=== PATIENT | female | born 1980 | race Caucasian/White ===

== ENCOUNTER 2018-02-13 12:37 | Emergency (ER) | payer BC ==
[2018-02-13 13:35] VITALS: BP 150/87
--- NOTE | 2018-02-13 14:09 | UC ---
Hand/Wrist HPI - HPI Summary HPI Summary: 38 y/o female presents to the urgent care c/o left hand pain s/p her dog hit her hand against the wall on 02/07/2018. Pt report pain has worsen w/ the day and is sharp w/ movement 4/10 radiating to the left elbow and pinky finger. Pt denies numbness or tingling sensation. 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 Pt has not taking anything to alleviate symptoms. Pt denies SOB, chest pain. abdominal pain , N/V/D. - History Of Current Complaint Chief Complaint: UCUpperExtremity Stated Complaint: ARM INJURY Time Seen by Provider: 02/13/18 13:49 Hx Obtained From: Patient Hx Last Menstrual Period: one week ago Onset/Duration: Sudden Onset, Lasting Weeks - 1 week, Still Present, Worse Since - 2 days Severity Initially: Mild Severity Currently: Moderate Pain Intensity: 4 Pain Scale Used: 0-10 Numeric Character Of Pain: Sharp Aggravating Factor(s): Movement, Lifting, Flexion, Pulling Alleviating Factor(s): Rest, Ice Associated Signs And Symptoms: Positive: Swelling. Negative: Fever, Weakness, Numbness/Tingling Related History: Dominant Hand Right - Allergies/Home Medications Allergies/Adverse Reactions: Allergies Allergy/AdvReac Type Severity Reaction Status Date / Time pine nuts AdvReac Intermediate Headache Uncoded 02/13/18 13:35 PMH/Surg Hx/FS Hx/Imm Hx Previously Healthy: Yes Other Endocrine History: Gestation Diabetes - Surgical History Surgical History: Yes Surgery Procedure, Year, and Place: WISDOM TEETH - Family History Known Family History: Positive: Unknown - Pt is adopted - Social History Occupation: Employed Full-time Lives: With Family Alcohol Use: Occasionally Substance Use Type: None Smoking Status (MU): Never Smoked Tobacco Review of Systems Constitutional: Negative Skin: Other - left hand swelling Eyes: Negative ENT: Negative Respiratory: Negative Cardiovascular: Negative Gastrointestinal: Negative Genitourinary: Negative Motor: Negative Neurovascular: Negative Musculoskeletal: Decreased ROM - left hand, Other: - left hand pain radiating to the elbow Neurological: Negative Psychological: Negative Is Patient Immunocompromised?: No All Other Systems Reviewed And Are Negative: Yes Physical Exam - Summary Physical Exam Summary: Vital Signs Reviewed: Yes General: Well-Appearing, No Pain Distress, Well-Nourished - female w/o any apparent distress Eyes: Positive: Conjunctiva Clear - PERRLA, EOMI ENT: Positive: Normal ENT inspection, Hearing grossly normal, Pharynx normal, TMs normal, Uvula midline Neck: Positive: Supple, Nontender, No Lymphadenopathy Respiratory: Positive: Chest non-tender, Lungs clear, Normal breath sounds, No respiratory distress Cardiovascular: Positive: RRR, No Murmur, Pulses Normal, Brisk Capillary Refill Abdomen Description: Positive: Nontender, No Organomegaly, Soft. Negative: CVA Tenderness (R), CVA Tenderness (L) Bowel Sounds: Positive: Present Musculoskeletal: Positive: Strength Intact, Other: Neurological Exam: Normal Musculoskeletal: Positive: Wrist: the L hand is without obvious asymmetry or deformity when compared to the R hand. No surface trauma, open wounds, swelling , or obvious deformity. No overlying erythema or warmth. No bony crepitus. Point tenderness over the thenar eminence and dorsal side of hand. No scaphoid fullness or tenderness to direct palpation or axial load. FROm of all finger and hand. Motor/sensory function of ulnar, radial, median nerves intact. Ulnar and radial pulses intact. Psychological Exam: Normal Skin Exam: Normal Triage Information Reviewed: Yes Vital Signs: Initial Vital Signs Temp 98.4 F 02/13/18 13:32 Pulse 82 02/13/18 13:32 Resp 12 02/13/18 13:32 BP 150/87 02/13/18 13:32 Pulse Ox 100 02/13/18 13:32 Hand/Wrist Course/Dx - Course Course Of Treatment: 38 y/o female presents to the urgent care c/o left hand pain s/p her dog hit her hand against the wall on 02/07/2018. Pt report pain has worsen w/ the day and is sharp w/ movement 4/10 radiating to the left elbow and pinky finger. Pt denies numbness or tingling sensation. 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 Pt has not taking anything to alleviate symptoms. Pt denies SOB, chest pain. abdominal pain, N/V/D. Hx obtained. LF hand X-ray ordered. Impression: There was no fracture, dislocation, soft tissue swelling or FB noted. Pts left hand immobilized with coak-up splint. Pt Rx Ibuprofen PO for pain. Advised RICE: Rest, Ice, elevation, NSAIDs, analgesia. There was no neurovascular compromise after splint application by nurse. the splint was in good alignment and the pt had good sensation and capillary refill at the time of discharge. If not improvement of symptoms to f/u w/ orthopedic Dr Kirkland for further management. Pt's BP is elevated today advised to decrease salt in diet, monitor BP and f/u with PCP for further management. D/C instrcutions explained. Pt understood and agreed w/ plan of care - Differential Dx/Diagnosis Differential Diagnosis/HQI/PQRI: Contusion, Dislocation, Fracture, Sprain, Strain, Tendonitis, Tenosynovitis Provider Diagnoses: 1- left hand pain s/p injury. 2- left hand sprain. 3- Elevated BP w/o Hx of HTN Discharge - Sign-Out/Discharge Documenting (check all that apply): Patient Departure - D/c home All imaging exams completed and their final reports reviewed: Yes - Discharge Plan Condition: Stable Disposition: HOME Prescriptions: Ibuprofen TAB* [Motrin TAB* 600 MG] 600 mg PO Q6H PRN #30 tab PRN Reason: Pain Patient Education Materials: Hand Sprain (ED), Low-Sodium Diet (ED) Referrals: Rosemarie Moreno MD [Primary Care Provider] - 1 Week Haroon Kirkland MD [Medical Doctor] - 1 Week Additional Instructions: 1-Please take medications as directed to alleviate pain and swelling. 2-Please apply ice, keep your hand immobilized with the splint. Avoid heavy lifting or repetitive movement w/ the your hand 3- Please f/u with Orthopedic Dr Kirkland or your PCP in 1 week is not improvement of symptoms for further evaluation and treatment. 4-Your BP is elevated today. please decrease salt in your diet, monitor BP and if it continues to be elevated please f/u with your PCP for further management - Billing Disposition and Condition Condition: STABLE Disposition: Home
--- NOTE | 2018-02-13 14:36 | RAD ---
INDICATION: Left hand injury. TECHNIQUE: 4 views of the left hand were obtained. FINDINGS: The bones are in normal alignment. No fracture is seen. Joint spaces appear maintained. IMPRESSION: NO EVIDENCE FOR FRACTURE.
== END 2018-02-13 15:00 | disposition home or self-care (01) ==
LOC: UCEAST 12:37
DX: S63.92XA Sprain of unspecified part of left wrist and hand, initial encounter (principal); W22.09XA Striking against other stationary object, initial encounter; Y93.9 Activity, unspecified; Y92.9 Unspecified place or not applicable; R03.0 Elevated blood-pressure reading, without diagnosis of hypertension
CPT/HCPCS: 99213; G0463

== ENCOUNTER 2018-04-29 21:24 | Emergency (ER) | payer BC ==
[2018-04-29 21:58] LABS: ABS Basophils 0.1 10^3/ul (0-0.2); ABS Eosinophils 0.2 10^3/ul (0-0.6); ABS Lymphocytes 2.8 10^3/ul (1.0-4.8); ABS Monocytes 0.6 10^3/ul (0-0.8); ABS Neutrophils 4.2 10^3/ul (1.5-7.7); ABS Nucleated RBC 0 10^3/ul; Eosinophil % 2.8 %; Hematocrit 44 % (35-47); Hemoglobin 15.1 g/dl (12.0-16.0); Lymphocyte % 35.1 %; Mean Corpuscular HGB Conc 35 g/dl (31-36); Mean Corpuscular Hemoglobin 33 pg (27-31); Mean Corpuscular Volume 95 fL (80-97); Mean Platelet Volume 8.4 fL (7.4-10.4); Nucleated Red Blood Cells % 0; Platelet Count 284 10^3/ul (150-450); Red Blood Count 4.59 10^6/ul (4.00-5.40); Red Cell Distribution Width 12 % (10.5-15); White Blood Count 7.9 10^3/ul (3.5-10.8)
[2018-04-29 22:07] LABS: INR 0.88 (0.77-1.02)
[2018-04-29 22:16] LABS: EGFR Non-African American 83.1 (>60)
[2018-04-29] MEDS ORDERED: NS 0.9% 1000 ML* 1,000 ML IV ONE (22:40)
[2018-04-29] MEDS ORDERED: Ondansetron ODT TAB* 4 MG PO ONE (22:40)
--- NOTE | 2018-04-30 00:16 | ED ---
Nausea/Vomiting/Diarrhea HPI - HPI Summary HPI Summary: Patient complains of nausea and lightheadedness starting this evening. Patient states she went to see PCP yesterday for symptoms of chest pain or epigastric pain 1 week. Patient placed on Zantac and diagnosed with anxiety attack. Patient denies chest pain or epigastric pain today. She states she just wants to know she is alright. Denies fever, cough, sore throat, CP, SOB, V/D, change in urine, change in BM, vaginal symptoms. Medical history is irregular heart rate, IBS. - History of Current Complaint Chief Complaint: EDNauseaVomitDiarrh Stated Complaint: NAUSEA/LIGHT HEADED Time Seen by Provider: 04/29/18 22:21 Hx Obtained From: Patient Hx Last Menstrual Period: one week ago ?: No Onset/Duration: Sudden Onset Timing: Constant Severity Currently: None Pain Intensity: 0 Pain Scale Used: 0-10 Numeric Aggravating Factor(s): Nothing Alleviating Factor(s): Nothing Nausea/Vomiting Presence: Nauseated Diarrhea Presence: No - Allergies/Home Medications Allergies/Adverse Reactions: Allergies Allergy/AdvReac Type Severity Reaction Status Date / Time pine nuts AdvReac Intermediate Headache Uncoded 02/13/18 13:35 PMH/Surg Hx/FS Hx/Imm Hx Endocrine/Hematology History: Denies: Hx Anticoagulant Therapy, Hx Diabetes Cardiovascular History: Denies: Hx Congestive Heart Failure, Hx Hypertension, Hx Pacemaker/ICD Respiratory History: Denies: Hx Asthma History: Reports: Other Problems/Disorders - uterine fibroids Denies: Hx Dialysis, Hx Renal Disease Musculoskeletal History: Denies: Hx Rheumatoid Arthritis, Hx Osteoporosis Sensory History: Denies: Hx Hearing Aid Neurological History: Reports: Other Neuro Impairments/Disorders - vertigo now Denies: Hx CVA Psychiatric History: Reports: Hx Panic Disorder - ANXIETY - Cancer History Hx Radiation Therapy: No - Surgical History Surgery Procedure, Year, and Place: WISDOM TEETH Infectious Disease History: No Infectious Disease History: Denies: Traveled Outside the [place] in Last 30 Days - Family History Known Family History: Positive: Unknown - Pt is adopted - Social History Alcohol Use: Occasionally Substance Use Type: Reports: None Smoking Status (MU): Never Smoked Tobacco Review of Systems Constitutional: Negative Eyes: Negative ENT: Negative Cardiovascular: Negative Respiratory: Negative Positive: Nausea Genitourinary: Negative Musculoskeletal: Negative Skin: Negative Neurological: Negative Psychological: Normal All Other Systems Reviewed And Are Negative: Yes Physical Exam - Summary Physical Exam Summary: Mild tenderness of epigastric pain, abdominal exam otherwise unremarkable. Triage Information Reviewed: Yes Vital Signs On Initial Exam: Initial Vitals Temp Pulse Resp BP Pulse Ox 98 F 80 22 139/87 100 04/29/18 21:27 04/29/18 21:27 04/29/18 21:27 04/29/18 21:27 04/29/18 21:27 Vital Signs Reviewed: Yes Appearance: Positive: Well-Appearing Skin: Positive: Warm Head/Face: Positive: Normal Head/Face Inspection Eyes: Positive: Normal ENT: Positive: Normal ENT inspection Neck: Positive: Supple Respiratory/Lung Sounds: Positive: Clear to Auscultation Cardiovascular: Positive: Normal Abdomen Description: Positive: Other: Musculoskeletal: Positive: Normal Neurological: Positive: Normal Psychiatric: Positive: Normal AVPU Assessment: Alert - [place] Coma Scale Best Eye Response: 4 - Spontaneous Best Motor Response: 6 - Obeys Commands Best Verbal Response: 5 - Oriented Coma Scale Total: 15 Diagnostics - Vital Signs Vital Signs Temp Pulse Resp BP Pulse Ox 04/29/18 22:29 74 95 04/29/18 21:27 98 F 80 22 139/87 100 - Laboratory Lab Results: Lab Results 04/29/18 04/29/18 04/29/18 Range/Units 21:47 21:47 21:47 WBC 7.9 (3.5-10.8) 10^3/ul RBC 4.59 (4.00-5.40) 10^6/ul Hgb 15.1 (12.0-16.0) g/dl Hct 44 (35-47) % MCV 95 (80-97) fL MCH 33 H (27-31) pg MCHC 35 (31-36) g/dl RDW 12 (10.5-15) % Plt Count 284 (150-450) 10^3/ul MPV 8.4 (7.4-10.4) fL Neut % (Auto) 53.3 % Lymph % (Auto) 35.1 % [place] % (Auto) 7.8 % Eos % (Auto) 2.8 % Baso % (Auto) 1.0 % Absolute Neuts (auto) 4.2 (1.5-7.7) 10^3/ul Absolute Lymphs (auto) 2.8 (1.0-4.8) 10^3/ul Absolute Monos (auto) 0.6 (0-0.8) 10^3/ul Absolute Eos (auto) 0.2 (0-0.6) 10^3/ul Absolute Basos (auto) 0.1 (0-0.2) 10^3/ul Absolute Nucleated RBC 0 10^3/ul Nucleated RBC % 0 INR (Anticoag Therapy) 0.88 (0.77-1.02) APTT 29.9 (26.0-36.3) seconds Sodium 137 (135-145) mmol/L Potassium 3.7 (3.5-5.0) mmol/L Chloride 104 (101-111) mmol/L Carbon Dioxide 25 (22-32) mmol/L Anion Gap 8 (2-11) mmol/L BUN 10 (6-24) mg/dL Creatinine 0.78 (0.51-0.95) mg/dL Est GFR ( Amer) 100.6 (>60) Est GFR (Non-Af Amer) 83.1 (>60) BUN/Creatinine Ratio 12.8 (8-20) Glucose 105 H (70-100) mg/dL Calcium 9.9 (8.6-10.3) mg/dL Total Bilirubin 0.30 (0.2-1.0) mg/dL AST 17 (13-39) U/L ALT 14 (7-52) U/L Alkaline Phosphatase 34 (34-104) U/L Troponin I 0.00 (<0.04) ng/mL Total Protein 7.8 (6.4-8.9) g/dL Albumin 5.1 (3.2-5.2) g/dL Globulin 2.7 (2-4) g/dL Albumin/Globulin Ratio 1.9 (1-3) Beta HCG, Quant < 0.60 mIU/mL Result Diagrams: 04/29/18 21:47 04/29/18 21:47 Lab Statement: Any lab studies that have been ordered have been reviewed, and results considered in the medical decision making process. Naus/Vom/Diarrhea Course/Dx - Course Course Of Treatment: Patient complains of nausea and lightheadedness starting this evening. Patient states she went to see PCP yesterday for symptoms of chest pain or epigastric pain 1 week. Patient placed on Zantac and diagnosed with anxiety attack. Patient denies chest pain or epigastric pain today. She states she just wants to know she is alright. Denies fever, cough, sore throat , CP, SOB, V/D, change in urine, change in BM, vaginal symptoms. Medical history is irregular heart rate, IBS. Physical exam:Mild tenderness of epigastric pain, abdominal exam otherwise unremarkable. Vital signs within normal limits and stable. EKG unremarkable. Labs unremarkable. Chest x-ray unremarkable. Likely anxiety attack. - Differential Dx/Diagnosis Provider Diagnosis: Nausea, Lightheaded Condition At Discharge: Stable Discharge - Sign-Out/Discharge Documenting (check all that apply): Patient Departure - Discharge Plan Condition: Stable Disposition: HOME Patient Education Materials: Acute Nausea and Vomiting (ED), Lightheadedness ( ED) Referrals: Rosemarie Moreno MD [Primary Care Provider] - Additional Instructions: Continue taking Zantac. Follow-up with primary care. Return to the ED for any new or worsening symptoms - Billing Disposition and Condition Condition: STABLE Disposition: Home
[2018-04-30 00:19] VITALS: BP 122/89
== END 2018-04-30 00:19 | disposition home or self-care (01) ==
LOC: ED 21:24
DX: R11.0 Nausea (principal); R42 Dizziness and giddiness; Z91.018 Allergy to other foods
CPT/HCPCS: 36415; 71046; 80053; 84484; 84702; 85025; 85610; 85730; 93005; 99282; A9270-GY

== ENCOUNTER → 2019-02-09 21:36 | Emergency (ER) | payer BC ==
[~2019-02-09 21:36] MED LIST: Amoxicillin/Clavulanate TAB* 875 MG PO ONE; Ibuprofen TAB* 600 MG PO ONE; Tetan/Diph/Pertus SYR(Tdap)* 0.5 ML SYR(BOOSTRIX) use SYR IM ONE
--- OUTSIDE RECORDS SUMMARY | 2019-02-09 21:44 | XMS REPORT | Continuity of Care Document ---
:1980 External Reference #:[id number] Author Name Tatyana Arboleda N.P. (transmitted by agent of provider Jeannette Mullins) Address [address], [place] [address] Care Team Providers Name Role Phone nAahy Sutton MD - Internal Medicine Care Team Information Plodding Operator [phone] Sandra George MD - Dermatology Care Team Information Plodding Operator Rosemarie Moreno MD - Internal Care Team Information Plodding Operator Medicine Problems Active Problems Provider Date Hypokalemia Tatyana Arboleda N.Kia Onset: 07/13/2015 Social History Type Date Description Comments Sex Unknown ETOH Use Currently consumes 1 per week alcohol Tobacco Use Start: Unknown End: Patient is a former smoked for 6 years. Unknown smoker Quit 2005. Recreational Drug Use Denies Drug Use Smoking Status Reviewed: 01/28/19 Patient is a former smoked for 6 years. smoker Quit 2005. Exercise Type/Frequency Exercises regularly Allergies, Adverse Reactions, Alerts Active Allergies Reaction Severity Comments Date NKDA 12/15/2012 [place] Nuts Head aches Severe 12/15/2012 Medications Active Medications SIG Qnty Indications Ordering Provider Date Annia Take 1 Tablet By 84tabs N92.5 Tatyana Arboleda, 04/11/2014 0.35mg Tablets Mouth Every Day N.P. Probiotic 1 by mouth every Unknown Capsules day Immunizations CPT Code Status Date Vaccine Lot # [id number] Given 01/17/2011 Tdap - Tetanus/Diptheria/Acellular Pertussis Vital Signs Date Vital Result Comment 01/28/2019 8:36am Height 62.25 inches 5'2.25" Weight 134.38 lb Heart Rate 70 /min BP Systolic 130 mmHg BP Diastolic 80 mmHg Body Temperature 97.5 F O2 % BldC Oximetry 98 % BMI (Body Mass Index) 24.4 kg/m2 04/28/2018 1:38pm Height 62.25 inches 5'2.25" Weight 131.00 lb Heart Rate 80 /min BP Systolic Sitting 124 mmHg BP Diastolic Sitting 83 mmHg Body Temperature 98.9 F O2 % BldC Oximetry 98 % BMI (Body Mass Index) 23.8 kg/m2 Results Description No Information Available Procedures Date Code Description Status 12/10/2015 59611395 Mammogram Completed Medical Devices Description No Information Available Encounters Description No Information Available Assessments Date Code Description Provider 01/28/2019 Z00.00 Encounter for general adult medical examination Tatyana Arboleda N.P. without abnormal findings 01/28/2019 L65.9 Nonscarring hair loss, unspecified Tatyana Arboleda N.P. Plan of Treatment Future Appointment(s):02/14/2020 2:20 pm - Tatyana Arboleda N.P. at [facility] Internal Medicine - [facility]01/28/2019 - Tatyana Arboleda N.P.Z00.00 Encounter for general adult medical examination without abnormal findingsComments:For your routine health maintenance: I encourage you to continue with regular exercise and healthy nutrition. You need to be getting between 1,000 - 1,200 mg of Calcium in daily for bone health. The best way to supplement what you get in your diet is to drink Calcium fortified orange juice. If you take a Calcium supplement be sure it has Vitamin D in it to help absorption. Your Tetanus immunization is up to date. You received this in 2010. It is good for 10 years unless you have a major injury, then it is good for 5 years.L65.9 Nonscarring hair loss, unspecifiedComments:For your hair loss I suggest you try taking Vit B12 1500 mcg daily.If in a few months you do not seeany change let me know. Functional Status Description No Information Available Mental Status Description No Information Available Referrals Description No Information Available
[2019-02-09 21:56] VITALS: BP 150/82
--- NOTE | 2019-02-09 22:32 | UC ---
Bite Injury/Animal HPI - HPI Summary HPI Summary: PATIENTS DOG AND CAT GOT INTO A FIGHT AND PATIENT SUSTAINED A DOG BITE TO HER LEFT HAND WHILE TRYING TO BREAK IT UP. NEEDS TETANUS UPDATED. - History of Current Complaint Chief Complaint: UCBiteInjury Stated Complaint: DOG BITE Time Seen by Provider: 02/09/19 21:39 Hx Obtained From: Patient Hx Last Menstrual Period: 01/17/19 Severity Currently: Moderate Severity Initially: Moderate Pain Intensity: 8 Pain Scale Used: 0-10 Numeric Onset/Duration: Sudden Onset, Lasting Minutes, Still Present Type of Bite: Pet Has Animal Been Immunized?: Yes Character: Puncture, Abrasion/Laceration Aggravating Factor(s): Nothing Alleviating Factor(s): Nothing Associated Signs And Symptoms: Positive: Erythema, Swelling Animal Available for Observation: Yes - Allergies/Home Medications Allergies/Adverse Reactions: Allergies Allergy/AdvReac Type Severity Reaction Status Date / Time pine nuts AdvReac Intermediate Headache Uncoded 02/09/19 21:56 PMH/Surg Hx/FS Hx/Imm Hx Other GI/ History: IBS Other History Of: Negative For: Anticoagulant Therapy - Surgical History Surgical History: Yes Surgery Procedure, Year, and Place: WISDOM TEETH - Family History Known Family History: Positive: Unknown - Pt is adopted - Social History Alcohol Use: Occasionally Substance Use Type: None Smoking Status (MU): Former Smoker Review of Systems All Other Systems Reviewed And Are Negative: Yes Constitutional: Positive: Negative Skin: Positive: Other - PW LEFT HAND Respiratory: Positive: Negative Cardiovascular: Positive: Negative Gastrointestinal: Positive: Negative Musculoskeletal: Positive: Arthralgia, Decreased ROM, Edema Physical Exam Triage Information Reviewed: Yes Appearance: Well-Appearing, No Pain Distress, Well-Nourished Vital Signs: Initial Vital Signs Temp 98 F 02/09/19 21:51 Pulse 95 02/09/19 21:51 Resp 16 02/09/19 21:51 BP 150/82 02/09/19 21:51 Pulse Ox 100 02/09/19 21:51 Vital Signs Reviewed: Yes Eyes: Positive: Conjunctiva Clear ENT: Positive: Hearing grossly normal Neck: Positive: Supple Respiratory: Positive: No respiratory distress, No accessory muscle use Cardiovascular: Positive: Pulses Normal Abdomen Description: Positive: Soft Musculoskeletal: Positive: ROM Limited @ - LEFT 5TH FINGER, Edema @ - LEFT 5TH FINGER, Other: - TTP LEFT 4TH AND 5TH MCP JOINTS AND DISTAL LEFT 5TH FINGER Neurological: Positive: Alert Psychological: Positive: Age Appropriate Behavior Skin: Positive: Other - 1CM IRREGULAR LACERATION AND 0.8CM IRREGULAR LACERATION LEFT HAND OVERLYING 4TH AND 5TH MCP JOINTS. SKIN EDGES FAIRLY WELL APPROXIMATED. SPFL ABRASION DORSAL LEFT 3RD FINGER OVERLYING PROXIMAL PHALANX Bite Injury Course/Dx - Course Course Of Treatment: NO FRACTURES ON MY INITIAL INTERPRETATION OF THE LEFT HAND X-RAYS. OFFICIAL RADIOLOGY READ IS PENDING. WOUNDS CLEANSED AND DRESSED BY RN. TDAP BOOSTED. AUGMENTIN TWICE DAILY FOR 10 DAYS. NAIL MATRIX LEFT FIFTH FINGER IS PARTIALLY AVULSED. PATIENT DECLINES ATTEMPT AT RELOCATION. STATES SHE WOULD RATHER IT JUST FALL OFF. - Differential Dx/Diagnosis Provider Diagnosis: Dog bite of multiple sites of left hand and fingers, Need for Tdap vaccination Discharge ED - Sign-Out/Discharge Documenting (check all that apply): Patient Departure All imaging exams completed and their final reports reviewed: No - Discharge Plan Condition: Stable Disposition: HOME Prescriptions: Amoxicillin/Clavulanate TAB* [Augmentin TAB 875*] 875 mg PO BID #18 tab Patient Education Materials: Animal Bite (ED), Nail Avulsion (ED) Referrals: Tatyana Arboleda NP [Primary Care Provider] - If Needed Additional Instructions: X-RAY OF YOUR LEFT HAND UNREMARKABLE ON MY INITIAL INTERPRETATION. WE WILL CALL YOU TOMORROW IF THE RADIOLOGY READ DIFFERS. TAKE THE AUGMENTIN FOR THE FULL 10 DAYS TO HELP PREVENT INFECTION. OTC MEDICATIONS NEEDED FOR DISCOMFORT. YOUR WOUNDS WILL HEAL FROM THE BOTTOM UP. KEEP THEM COVERED WITH A STERILE DRESSING UNTIL HEALED OVER. SEEK FOLLOW-UP IF YOU DEVELOP SPREADING REDNESS OF THE SKIN, PURULENT DRAINAGE, FEVER, INCREASED PAIN OR ANY OTHER CONCERNING SYMPTOMS. TETANUS IMMUNIZATION GIVEN (TDAP): You have been given an immunization against tetanus. Please record this in your records. In general, a booster is needed only once every 10 years. The tetanus shot protects against tetanus or "lockjaw," which is a complication of certain wound infections (the tetanus shot cannot protect against the actual infection). The immunization site may become warm and red due to local reaction. If this occurs, apply warm compresses and take aspirin or ibuprofen to reduce inflammation and discomfort. Return for evaluation if the reaction becomes severe. - Billing Disposition and Condition Condition: STABLE Disposition: Home
--- NOTE | 2019-02-10 15:06 | UC ---
- Progress Note Progress Note: Final radiologist reading of the left hand x-ray from April 11, 2019 comes back as no fracture. The provider interpretation from the same date is the same therefore there is no discrepancy. Course/Dx - Diagnoses Provider Diagnoses: Dog bite of multiple sites of left hand and fingers, Need for Tdap vaccination Discharge ED - Sign-Out/Discharge Documenting (check all that apply): Patient Departure All imaging exams completed and their final reports reviewed: Yes - Discharge Plan Condition: Stable Disposition: HOME Prescriptions: Amoxicillin/Clavulanate TAB* [Augmentin TAB 875*] 875 mg PO BID #18 tab Patient Education Materials: Animal Bite (ED), Nail Avulsion (ED) Referrals: Tatyana Arboleda NP [Primary Care Provider] - If Needed Additional Instructions: X-RAY OF YOUR LEFT HAND UNREMARKABLE ON MY INITIAL INTERPRETATION. WE WILL CALL YOU TOMORROW IF THE RADIOLOGY READ DIFFERS. TAKE THE AUGMENTIN FOR THE FULL 10 DAYS TO HELP PREVENT INFECTION. OTC MEDICATIONS NEEDED FOR DISCOMFORT. YOUR WOUNDS WILL HEAL FROM THE BOTTOM UP. KEEP THEM COVERED WITH A STERILE DRESSING UNTIL HEALED OVER. SEEK FOLLOW-UP IF YOU DEVELOP SPREADING REDNESS OF THE SKIN, PURULENT DRAINAGE, FEVER, INCREASED PAIN OR ANY OTHER CONCERNING SYMPTOMS. TETANUS IMMUNIZATION GIVEN (TDAP): You have been given an immunization against tetanus. Please record this in your records. In general, a booster is needed only once every 10 years. The tetanus shot protects against tetanus or "lockjaw," which is a complication of certain wound infections (the tetanus shot cannot protect against the actual infection). The immunization site may become warm and red due to local reaction. If this occurs, apply warm compresses and take aspirin or ibuprofen to reduce inflammation and discomfort. Return for evaluation if the reaction becomes severe. - Billing Disposition and Condition Condition: STABLE Disposition: Home
== END | disposition home or self-care (01) ==
LOC: UCEAST 21:36
DX: S61.452A Open bite of left hand, initial encounter (principal); W54.0XXA Bitten by dog, initial encounter; Y92.9 Unspecified place or not applicable; K58.9 Irritable bowel syndrome, unspecified; Z23 Encounter for immunization; Z87.891 Personal history of nicotine dependence
CPT/HCPCS: 90715; A9270-GY

== ENCOUNTER 2019-03-12 11:32 | Emergency (ER) | payer BC ==
[2019-03-12 12:36] VITALS: BP 139/82
--- NOTE | 2019-03-12 12:53 | UC ---
Headache HPI - HPI Summary HPI Summary: L catholic and face headache x4 days. reports throbbing in the night,she states she does grind her teeth. denies vISION CHANGES, change in speech. On progesterone Control. has been very stressed at work; works with mentally challenged youth. Pt does report often getting 'ocular migraines'. denies dv. Has also noticed a 'lump' at the base of her neck that she noticed last night. She is fearful it is a lymph node on her spine. previous dog bite checked for healing Was bitten on : 3 wks ago. no signs of sepsis,pt feels she may be getting septic. Of note pt does report being anxious about her body and symptoms. She also states sh does not like taking any meds. - History Of Current Complaint Chief Complaint: UCGeneralIllness Stated Complaint: HEADACHE LUMP ON NECK Time Seen by Provider: 03/12/19 12:34 Hx Obtained From: Patient Hx Last Menstrual Period: 03/06/2019 ?: No - bcp; progesterone Pain Intensity: 3 Pain Scale Used: 0-10 Numeric Character: Throbbing, Pressure Associated Signs And Symptoms: Negative: Fever, Neck Pain, Neck Stiffness - Allergies/Home Medications Allergies/Adverse Reactions: Allergies Allergy/AdvReac Type Severity Reaction Status Date / Time pine nuts AdvReac Intermediate Headache Uncoded 03/12/19 13:06 Home Medications: Home Medications L.acidoph,Paracasei, B.lactis [Probiotic] 03/12/19 [History] PMH/Surg Hx/FS Hx/Imm Hx - Additional Past Medical History Additional PMH: self reports ocular migraine hx. Previously Healthy: Yes Other History Of: Negative For: Anticoagulant Therapy - Surgical History Surgical History: Yes Surgery Procedure, Year, and Place: WISDOM TEETH - Family History Known Family History: Positive: Unknown - Pt is adopted - Social History Alcohol Use: Weekly Substance Use Type: None Smoking Status (MU): Former Smoker Review of Systems All Other Systems Reviewed And Are Negative: Yes Constitutional: Negative: Fever, Chills Skin: Positive: Other - DOG BITE HEALED WOUND L HAND Motor: Negative: Weakness Neurological: Positive: Headache. Negative: Weakness, Paresthesia, Numbness Psychological: Positive: Anxious Physical Exam Triage Information Reviewed: Yes Appearance: Well-Appearing Vital Signs: Initial Vital Signs Temp 98.8 F 03/12/19 12:30 Pulse 74 03/12/19 12:30 Resp 16 03/12/19 12:30 BP 139/82 03/12/19 12:30 Pulse Ox 100 03/12/19 12:30 Vital Signs Reviewed: Yes Eyes: Positive: Conjunctiva Clear ENT: Positive: Other - nontender temples/TMJ Dental: Negative: Percussion Tenderness @ Neck: Positive: Other: - dorsal cervical fat pad, minimal. nontender, no erythema. Respiratory Exam: Normal Respiratory: Positive: No respiratory distress Neurological: Positive: Alert, Other: - CN II-XII Psychological: Positive: Age Appropriate Behavior, Other: - +anxious Skin: Positive: Other - L hand has some scarring from dog bite but no redness, swelling. Headache Course/Dx - Course Course Of Treatment: Tension ROGERS symptoms x 4 days w/ no neuro deficits in a pt. w/ hx of ocular migraines. On exam there was a healed dog bite wound on L hand, no lymphadenopathy and a dorsalcervical fat pad which was very small. Vitals are good. Tried to reassure pt re: her symptoms and explained I do not think she is septic or that the neck issues are lymph nodes. Discussed ways to manage anxiety and I do think there needs to be possible tx as in therapy. Her dog bite is well healed and she is having residual discomfort. We addressed many things with patient and reviewed ways to manage stress and tension headaches. - Differential Dx/Diagnosis Differential Diagnosis/HQI/PQRI: Tension Headache, Other Provider Diagnosis: Tension headache, Wound healing well on examination Discharge ED - Sign-Out/Discharge Documenting (check all that apply): Patient Departure All imaging exams completed and their final reports reviewed: No Studies - Discharge Plan Condition: Good Disposition: HOME Prescriptions: Butalb/Acetamin/Caff TAB* [Fioricet TAB*] 1 tab PO Q6H PRN #20 tab MDD mdd: 4 tabs PRN Reason: Migraine Headache Ibuprofen [Ibu] 600 mg PO TID PRN 30 Days #90 tablet PRN Reason: Headache Patient Education Materials: Migraine Headache (ED), Tension Headache (ED) Referrals: Tatyana Arboleda NP [Primary Care Provider] - Additional Instructions: Please review side effects of meds. - Billing Disposition and Condition Condition: GOOD Disposition: Home
[2019-03-12] MEDS ORDERED: Butalb/Acetamin/Caff TAB* 1 TAB PO PRN (13:06)
== END 2019-03-12 13:16 | disposition home or self-care (01) ==
LOC: UCEAST 11:32
DX: G44.209 Tension-type headache, unspecified, not intractable (principal); F43.9 Reaction to severe stress, unspecified; F41.9 Anxiety disorder, unspecified; Z91.018 Allergy to other foods; Z87.891 Personal history of nicotine dependence
CPT/HCPCS: 99212; G0463